=== PATIENT | female | born 1950 | race Caucasian/White ===

== ENCOUNTER 2023-09-03 15:32 | Inpatient (IN) | payer OTHER ==
[~2023-09-03] VITALS: Ht 167.6 cm; Wt 75.3 kg
[2023-09-03 16:53] LABS: BASOPHILS # (AUTO) 0.1 K/uL (0.0-0.2); BASOPHILS % (AUTO) 0.4 % (0.0-2.0); HEMATOCRIT 40 % (33-45); HEMOGLOBIN 13.9 g/dL (11.5-14.8); LYMPHOCYTES % (AUTO) 7.1 % (20.0-44.0); MEAN CORPUSCULAR HEMOGLOBIN 30 PG (26.0-33.0); MEAN CORPUSCULAR HGB CONC 34 g/dl (31.0-36.0); MEAN CORPUSCULAR VOLUME 87 fL (82-100); MONOCYTES # (AUTO) 0.7 K/uL (0.1-1.30); MONOCYTES % (AUTO) 5.4 % (2.0-12.0); NEUTROPHILS # (AUTO) 11.9 K/uL (1.8-8.9); NEUTROPHILS % (AUTO) 87.1 % (43.0-81.0); PLATELET COUNT (AUTO) 178 K/uL (150-450); RED BLOOD CELL COUNT(AUTO) 4.66 MIL/uL (4.0-5.2); RED CELL DISTRIBUTION WIDTH 13.5 % (11.5-15.0); WHITE BLOOD COUNT (AUTO) 13.7 K/uL (4.3-11.0)
[2023-09-03 17:03] LABS: CALCIUM, SERUM 9.5 mg/dL (8.5-10.1); CARBON DIOXIDE 22 mmol/L (21-32); CHLORIDE 97 mmol/L (98-107); CREATININE 0.8 mg/dL (0.6-1.3); GLUCOSE 196 mg/dL (74-106); SODIUM SERUM 133 mmol/L (136-145); UREA NITROGEN, BLOOD 12 mg/dL (7-18)
[2023-09-03 17:16] LABS: ALANINE AMINOTRANSFERASE 29 U/L (12-78); ALBUMIN 3.3 g/dL (3.4-5.0); ALKALINE PHOSPHATASE 52 U/L (46-116); ASPARTATE AMINOTRANSFERASE 15 U/L (15-37); BILIRUBIN,DIRECT 0.2 mg/dL (0.0-0.2); BILIRUBIN,TOTAL 0.7 mg/dL (0.2-1.0); NT-PRO BNP 442 pg/mL (0-125); TOTAL PROTEIN, SERUM 7.5 g/dL (6.4-8.2)
[2023-09-03] MEDS ORDERED: FLEC50TA2 PO (17:44)
[2023-09-03] MEDS ORDERED: METF850T PO (17:44)
[2023-09-03] MEDS ORDERED: GLIP10TA11 PO (17:44)
[2023-09-03] MEDS ORDERED: AMLO-62 PO (17:44)
[2023-09-03] MEDS ORDERED: SIMV10TA98 PO (17:44)
[2023-09-03 18:10] LABS: APPEARANCE,URINE CLEAR (CLEAR); BILIRUBIN,URINE 1+ (NEGATIVE); BLOOD, URINE TRACE-INTA Ery/uL (NEGATIVE); COLOR,URINE YELLOW (YELLOW); KETONES,URINE 3+ mg/dL (NEGATIVE); LEUKOCYTE ESTERASE ,URINE NEGATIVE (NEGATIVE); NITRITE, URINE NEGATIVE (NEGATIVE); PROTEIN,URINE TRACE mg/dl (NEGATIVE); UGLUCOSE NEGATIVE (NEGATIVE)
[2023-09-03 18:35] LABS: ADD URINE CULTURE NO; BACTERIA,URINE 1+ /HPF (None Seen)
[2023-09-03 18:37] LABS: MUCUS,URINE Rare /LPF (None Seen)
[2023-09-03] MEDS: IV NS 0.9% 1,000 ML BAG IV ONE (19:03)
[2023-09-03] MEDS: CEFTRIAXONE 1GM BAG (ER ONLY) 1 GM/50 ML PIGGYBACK IV ONE (19:04)
[2023-09-03] MEDS ORDERED: ONDANSETRON HCL/PF 4 MG/2 ML VIAL IVP PRN (20:00)
[2023-09-03 21:35] VITALS: BP 135/58; TEMP 100; O2SAT 95
[2023-09-03 21:45] VITALS: BP 135/58; TEMP 100; O2SAT 95
[2023-09-03] MEDS: IV NS 0.9% 1,000 ML IV PRN (23:26)
[2023-09-03] MEDS: ENOXAPARIN SODIUM 40 MG/0.4 ML DISP.SYRIN SQ SCH (23:29)
[2023-09-04] VITALS: BP 118/56; TEMP 98.6; O2SAT 95; O2SAT 96
[2023-09-04 04:00] VITALS: BP 105/92; TEMP 98.4; O2SAT 94
[2023-09-04 07:11] LABS: BASOPHILS % (AUTO) 0.5 % (0.0-2.0); EOSINOPHILS % (AUTO) 0.3 % (0.0-6.0); HEMATOCRIT 40 % (33-45); HEMOGLOBIN 13.5 g/dL (11.5-14.8); LYMPHOCYTES # (AUTO) 1.6 K/uL (0.8-4.8); LYMPHOCYTES % (AUTO) 21.6 % (20.0-44.0); MEAN CORPUSCULAR HEMOGLOBIN 29 PG (26.0-33.0); MEAN CORPUSCULAR HGB CONC 34 g/dl (31.0-36.0); MEAN CORPUSCULAR VOLUME 87 fL (82-100); MONOCYTES # (AUTO) 0.6 K/uL (0.1-1.30); MONOCYTES % (AUTO) 8.3 % (2.0-12.0); NEUTROPHILS # (AUTO) 5.2 K/uL (1.8-8.9); NEUTROPHILS % (AUTO) 69.3 % (43.0-81.0); PLATELET COUNT (AUTO) 148 K/uL (150-450); RED BLOOD CELL COUNT(AUTO) 4.61 MIL/uL (4.0-5.2); RED CELL DISTRIBUTION WIDTH 13.2 % (11.5-15.0); WHITE BLOOD COUNT (AUTO) 7.5 K/uL (4.3-11.0)
[2023-09-04 07:33] LABS: CALCIUM, SERUM 9.2 mg/dL (8.5-10.1); CARBON DIOXIDE 22 mmol/L (21-32); CHLORIDE 104 mmol/L (98-107); CREATININE 0.7 mg/dL (0.6-1.3); GLUCOSE 92 mg/dL (74-106); MAGNESIUM 2.1 mg/dL (1.8-2.4); PHOSPHORUS 2.9 mg/dL (2.5-4.9); POTASSIUM 3.2 mmol/L (3.5-5.1); SODIUM SERUM 139 mmol/L (136-145); UREA NITROGEN, BLOOD 8 mg/dL (7-18)
[2023-09-04 08:00] VITALS: BP 112/62; TEMP 98.6; O2SAT 96
[2023-09-04] MEDS: POTASSIUM CHLORIDE 20 MEQ TAB.PRT.SR PO SCH (09:55)
[2023-09-04 12:00] VITALS: BP 107/91; TEMP 99.1; O2SAT 98
[2023-09-04 16:00] VITALS: BP 131/66; TEMP 99; O2SAT 96
[2023-09-04 20:00] VITALS: BP 136/66; TEMP 99.3; O2SAT 95
[2023-09-04] MEDS: CEFTRIAXONE 1 G in IV D5W 50 ML IV SCH (20:26)
[2023-09-05] VITALS (7 sets, daily range): BP systolic 116–142; BP diastolic 63–74; TEMP 98.2–98.9; O2SAT 95–100
[2023-09-05 06:33] LABS: CALCIUM, SERUM 8.6 mg/dL (8.5-10.1); CREATININE 0.6 mg/dL (0.6-1.3); POTASSIUM 3.5 mmol/L (3.5-5.1)
[2023-09-05] MEDS: SIMVASTATIN 10 MG TABLET PO SCH (09:07)
[2023-09-05] MEDS ORDERED: FLECAINIDE ACETATE 50 MG TABLET PO SCH (11:30)
[2023-09-05] MEDS: AMLODIPINE BESYLATE 10 MG TABLET PO SCH (11:45)
[2023-09-05] MEDS: LISINOPRIL (20MG) 20 MG TABLET PO SCH (11:45)
[2023-09-05] MEDS: FLECAINIDE ACETATE (100 MG) 100 MG TABLET PO SCH (12:11)
[2023-09-06] VITALS: BP 134/69; TEMP 98.6; O2SAT 94
[2023-09-06 01:10] VITALS: BP 136/69; TEMP 98.6; O2SAT 94
[2023-09-06 04:00] VITALS: BP 118/62; TEMP 98.4; O2SAT 96
[2023-09-06 04:29] VITALS: BP 118/62; TEMP 98.4; O2SAT 96
[2023-09-06 08:00] VITALS: BP 130/66; TEMP 98.7; O2SAT 96
[2023-09-06 09:19] VITALS: BP 130/66
[2023-09-06] MEDS: ACETAMINOPHEN 325 MG TABLET PO PRN (09:19)
== END 2023-09-06 13:58 | disposition home health service (06) | DRG 689 ==
LOC: ER 15:32 → TELE 19:10 → MED 09-06 10:29
PROVIDERS: ADMIT Nurse Practitioner Acute Care; ATTEND Nurse Practitioner Acute Care
DX: N39.0 Urinary tract infection, site not specified (principal); G92.8 Other toxic encephalopathy; E44.1 Mild protein-calorie malnutrition; E87.1 Hypo-osmolality and hyponatremia; E88.09 Other disorders of plasma-protein metabolism, not elsewhere classified; E86.0 Dehydration; E11.9 Type 2 diabetes mellitus without complications; E87.6 Hypokalemia; I10 Essential (primary) hypertension; Z79.84 Long term (current) use of oral hypoglycemic drugs; R53.1 Weakness; B96.89 Other specified bacterial agents as the cause of diseases classified elsewhere; Z20.822 Contact with and (suspected) exposure to COVID-19
CPT/HCPCS: 36415; 70450-TC; 71045-TC; 80048-TC; 80076-TC; 81001; 82962-TC; 83690-TC; 83735-TC; 83880; 84100-TC; 84484-TC; 85025-TC; 97110-TC; 97112-TC; 97116-TC; 97530-TC; 97535-TC; A4223; G0378; J0696; J1650; J7030; J7060

== ENCOUNTER 2023-11-01 11:03 | Inpatient (IN) | payer OTHER ==
[~2023-11-01] VITALS: Ht 162.6 cm; Wt 73.9 kg
[2023-11-01 00:10] VITALS: BP 128/73; TEMP 97.7; O2SAT 95
[2023-11-01 04:30] VITALS: BP 125/56; TEMP 98.1; O2SAT 97
[~2023-11-01 11:03] MED LIST: AMLO-62 PO; AMLO1CAP2 PO; FLEC50TA2 PO; GLIP10TA11 PO; METF-441 PO; METF850T PO; SIMV10TA98 PO
[2023-11-01] MEDS ORDERED: IV NS 0.9% 250 ML IV ONE (11:25)
[2023-11-01] MEDS ORDERED: IOHEXOL-350 100 ML VIAL IV ONE (11:25)
[2023-11-01 11:33] LABS: BASOPHILS # (AUTO) 0.1 K/uL (0.0-0.2); BASOPHILS % (AUTO) 1.1 % (0.0-2.0); EOSINOPHILS # (AUTO) 0.1 K/uL (0.0-0.7); EOSINOPHILS % (AUTO) 1.8 % (0.0-6.0); HEMATOCRIT 41 % (33-45); HEMOGLOBIN 13.4 g/dL (11.5-14.8); LYMPHOCYTES # (AUTO) 1.9 K/uL (0.8-4.8); LYMPHOCYTES % (AUTO) 27.9 % (20.0-44.0); MEAN CORPUSCULAR HEMOGLOBIN 29 PG (26.0-33.0); MEAN CORPUSCULAR HGB CONC 33 g/dl (31.0-36.0); MEAN CORPUSCULAR VOLUME 88 fL (82-100); MONOCYTES # (AUTO) 0.4 K/uL (0.1-1.30); MONOCYTES % (AUTO) 5.6 % (2.0-12.0); NEUTROPHILS # (AUTO) 4.2 K/uL (1.8-8.9); NEUTROPHILS % (AUTO) 63.6 % (43.0-81.0); PLATELET COUNT (AUTO) 224 K/uL (150-450); RED BLOOD CELL COUNT(AUTO) 4.67 MIL/uL (4.0-5.2); RED CELL DISTRIBUTION WIDTH 13.8 % (11.5-15.0); WHITE BLOOD COUNT (AUTO) 6.6 K/uL (4.3-11.0)
[2023-11-01 11:43] LABS: CALCIUM, SERUM 9.5 mg/dL (8.5-10.1); CARBON DIOXIDE 26 mmol/L (21-32); CHLORIDE 103 mmol/L (98-107); CREATININE 0.8 mg/dL (0.6-1.3); GLUCOSE 134 mg/dL (74-106); SODIUM SERUM 140 mmol/L (136-145); UREA NITROGEN, BLOOD 12 mg/dL (7-18)
[2023-11-01 11:48] LABS: ALANINE AMINOTRANSFERASE 23 U/L (12-78); ALBUMIN 3.8 g/dL (3.4-5.0); ALKALINE PHOSPHATASE 51 U/L (46-116); ASPARTATE AMINOTRANSFERASE 10 U/L (15-37); BILIRUBIN,DIRECT 0.1 mg/dL (0.0-0.2); BILIRUBIN,TOTAL 0.5 mg/dL (0.2-1.0); INR 0.94 (0.91-1.10); PARTIAL THROMBOPLASTIN TIME 26.4 SEC (24.3-34.3); TOTAL PROTEIN, SERUM 7.3 g/dL (6.4-8.2)
[2023-11-01] MEDS: IV NS 0.9% 500 ML BAG IV ONE (12:13)
[2023-11-01] MEDS ORDERED: DEXTROSE 50%-WATER 50 ML DISP.SYRIN IV PRN (13:30)
[2023-11-01 13:32] LABS: APPEARANCE,URINE CLEAR (CLEAR); BILIRUBIN,URINE NEGATIVE (NEGATIVE); BLOOD, URINE NEGATIVE Ery/uL (NEGATIVE); COLOR,URINE YELLOW (YELLOW); KETONES,URINE NEGATIVE (NEGATIVE); LEUKOCYTE ESTERASE ,URINE NEGATIVE (NEGATIVE); NITRITE, URINE NEGATIVE (NEGATIVE); PH,URINE 6.5 (5.0-8.0); PROTEIN,URINE NEGATIVE (NEGATIVE); UGLUCOSE NEGATIVE (NEGATIVE); UROBILINOGEN,URINE 0.2 EU/dL (0.2)
[2023-11-01 13:39] LABS: AMPHETAMINE, URINE NEGATIVE (NEGATIVE); BARBITURATE, URINE NEGATIVE (NEGATIVE); BENZODIAZEPINE, URINE NEGATIVE (NEGATIVE); CANNABINOID, URINE NEGATIVE (NEGATIVE); COCCAINE, URINE NEGATIVE (NEGATIVE); OPIATE, URINE NEGATIVE (NEGATIVE); PHENCYCLIDINE SCREEN,URINE NEGATIVE (NEGATIVE)
[2023-11-01] MEDS: CLOPIDOGREL BISULFATE 75 MG TABLET PO ONE (15:58)
[2023-11-01] MEDS: ENOXAPARIN SODIUM 40 MG/0.4 ML DISP.SYRIN SQ SCH (15:59)
[2023-11-01 16:00] VITALS: BP 133/62; TEMP 98.2; O2SAT 97
[2023-11-01] MEDS: BLOOD SUGAR DIAGNOSTIC 1 EACH STRIP IN SCH (16:50)
[2023-11-01 20:00] VITALS: BP 122/61; TEMP 98.4; O2SAT 96
[2023-11-01 20:42] VITALS: BP 122/61; TEMP 98.4; O2SAT 96
[2023-11-01] MEDS: SIMVASTATIN 40 MG TABLET PO SCH (22:00)
[2023-11-01] MEDS: SIMVASTATIN 20 MG TABLET ONE (22:04)
[2023-11-01] MEDS: INSULIN REGULAR, HUMAN 100 UNIT/ML 3 ML VIAL SQ PRN (22:12)
[2023-11-02] VITALS: BP 128/73; TEMP 97.7; O2SAT 95
[2023-11-02 04:00] VITALS: BP 125/56; TEMP 98.1; O2SAT 97
[2023-11-02 06:33] LABS: BASOPHILS # (AUTO) 0.1 K/uL (0.0-0.2); BASOPHILS % (AUTO) 1.1 % (0.0-2.0); EOSINOPHILS # (AUTO) 0.1 K/uL (0.0-0.7); EOSINOPHILS % (AUTO) 2.6 % (0.0-6.0); HEMATOCRIT 39 % (33-45); LYMPHOCYTES # (AUTO) 2.3 K/uL (0.8-4.8); LYMPHOCYTES % (AUTO) 46.5 % (20.0-44.0); MEAN CORPUSCULAR HEMOGLOBIN 29 PG (26.0-33.0); MEAN CORPUSCULAR HGB CONC 33 g/dl (31.0-36.0); MEAN CORPUSCULAR VOLUME 87 fL (82-100); MONOCYTES # (AUTO) 0.4 K/uL (0.1-1.30); MONOCYTES % (AUTO) 7.3 % (2.0-12.0); NEUTROPHILS # (AUTO) 2.1 K/uL (1.8-8.9); NEUTROPHILS % (AUTO) 42.5 % (43.0-81.0); PLATELET COUNT (AUTO) 206 K/uL (150-450); RED BLOOD CELL COUNT(AUTO) 4.49 MIL/uL (4.0-5.2); RED CELL DISTRIBUTION WIDTH 13.8 % (11.5-15.0)
[2023-11-02 06:47] LABS: INR 0.97 (0.91-1.10); PARTIAL THROMBOPLASTIN TIME 26.8 SEC (24.3-34.3); PROTHROMBIN TIME 10.3 SECS (9.2-11.1)
[2023-11-02 06:49] LABS: CALCIUM, SERUM 8.9 mg/dL (8.5-10.1); CARBON DIOXIDE 23 mmol/L (21-32); CHLORIDE 105 mmol/L (98-107); CREATININE 0.7 mg/dL (0.6-1.3); GLUCOSE 116 mg/dL (74-106); POTASSIUM 3.6 mmol/L (3.5-5.1); SODIUM SERUM 141 mmol/L (136-145); UREA NITROGEN, BLOOD 9 mg/dL (7-18)
[2023-11-02] MEDS: PANTOPRAZOLE 40 MG TABLET.DR PO SCH (06:51)
[2023-11-02 08:00] VITALS: BP 106/65; TEMP 98.1; O2SAT 97
[2023-11-02] MEDS: ASPIRIN 81 MG TAB.CHEW PO SCH (10:06)
[2023-11-02] MEDS: CLOPIDOGREL BISULFATE 75 MG TABLET PO SCH (10:06)
[2023-11-02] MEDS ORDERED: SIMV-49 PO (10:44)
[2023-11-02] MEDS ORDERED: ASPI-1169 PO (10:44)
[2023-11-02] MEDS ORDERED: CLOP75TA15 PO (10:44)
[2023-11-02 10:49] LABS: CHOLESTEROL 203 mg/dL (<200); HDL CHOLESTEROL 89 mg/dL (40-60); LDL 95 mg/dL (0-99); TRIGLYCERIDES 76 mg/dL (30-150)
[2023-11-02] MEDS ORDERED: SIMVASTATIN 20 MG TABLET PO SCH (22:00)
== END 2023-11-02 14:00 | disposition home or self-care (01) | DRG 69 ==
LOC: ER 11:18 → TELE 12:45
PROVIDERS: ADMIT Nurse Practitioner Acute Care; ATTEND Nurse Practitioner Acute Care
DX: G45.9 Transient cerebral ischemic attack, unspecified (principal); E66.9 Obesity, unspecified; I10 Essential (primary) hypertension; Z79.84 Long term (current) use of oral hypoglycemic drugs; E78.5 Hyperlipidemia, unspecified; E11.9 Type 2 diabetes mellitus without complications; Z68.28 Body mass index [BMI] 28.0-28.9, adult; R20.0 Anesthesia of skin; R29.700 NIHSS score 0
CPT/HCPCS: 36415; 70450-TC; 70496-TC; 70498-TC; 71045-TC; 80048-TC; 80061-TC; 80076-TC; 82962-TC; 84484-TC; 85025-TC; 85730-TC; 92526; 92611-TC; 97110-TC; 97116-TC; 97530-TC; G0378; J1650; J1815; J7050; Q9967